=== PATIENT | female | born 1945 | race Caucasian/White ===

== ENCOUNTER 2016-11-23 15:06 | Emergency (ER) | payer MEDICAID ==
[2016-11-23 15:21] VITALS: PULSE 63; RESP 18; TEMP 98; O2SAT 98
[2016-11-23 15:22] VITALS: BP 138/82
--- NOTE | 2016-11-23 16:25 | C.PDOC ---
History Of Present Illness 71 y/o female presents to the ED with complaints pain to right wrist, flank and knee. Pt reports she tripped and fell 2 days ago landing on her right side on carpet floor. Denies head injury, LOC, weakness, numbness or any other complaints. - HPI Time Seen by Provider: 11/23/16 15:46 Chief Complaint (Nursing): Trauma History Per: Patient History/Exam Limitations: no limitations Onset/Duration Of Symptoms: Days Severity: Mild - Fall Fall:Prior To Injury: Tripped Past Medical History Reviewed: Historical Data, Nursing Documentation, Vital Signs Vital Signs: Last Vital Signs Temp 98.0 F 11/23/16 15:14 Pulse 63 11/23/16 15:14 Resp 18 11/23/16 15:14 BP 138/82 11/23/16 15:14 Pulse Ox 98 11/23/16 16:57 - Medical History PMH: Arthritis, CVA (affecting left side of body), HTN, Osteoporosis, Rheumatoid Arthritis Surgical History: Cholecystectomy - [facility] Procedures INJECT/INFUSE NEC (05/03/14) Family History: States: Unknown Family Hx - Social History Hx Tobacco Use: No Hx Alcohol Use: No Hx Substance Use: No - Immunization History Hx Tetanus Toxoid Vaccination: No Hx Influenza Vaccination: No Hx Pneumococcal Vaccination: No Review Of Systems Except As Marked, All Systems Reviewed And Found Negative. Musculoskeletal: Positive for: Other (right wrist, flank and knee pain) Neurological: Negative for: Weakness, Numbness Physical Exam - Physical Exam Appears: Non-toxic, No Acute Distress Skin: Warm, Dry, Other (hematoma to pinna right ear) Head: Atraumatic, Normacephalic Eye(s): bilateral: Normal Inspection Nose: Normal, No Epistaxis Neck: Normal, Normal ROM, Supple Chest: Symmetrical, Tenderness (right lateral rib tenderness and ecchymosis), Ecchymosis (right lateral posterior side) Cardiovascular: Rhythm Regular, No Murmur Respiratory: Normal Breath Sounds, No Rales, No Rhonchi, No Wheezing Gastrointestinal/Abdominal: Normal Exam, Soft, No Tenderness Back: Normal Inspection, No Vertebral Tenderness, No Paraspinal Tenderness Extremity: Normal ROM, Capillary Refill (<2 seconds), No Deformity, Swelling ( mild swelling right wrist with nonfocal tenderness), Other (mild ecchymotic lesion to right knee) Pulses: Right Radial: Normal, Right Dorsalis Pedis: Normal Neurological/Psych: Oriented x3, Normal Speech, Normal Motor, Normal Sensation ED Course And Treatment O2 Sat by Pulse Oximetry: 98 (room air) Pulse Ox Interpretation: Normal Medical Decision Making Medical Decision Making: Plan: * XR ribs, chest * Tylenol X-rays negative for fracture or dislocation. Patient remained well in no acute distress. Stable for discharge and recommend analgesics as needed Disposition Counseled Patient/Family Regarding: Studies Performed, Diagnosis, Need For Followup - Disposition Referrals: [facility] [Outside] [facility] [employer] [facility] [Outside] Disposition: HOME/ ROUTINE Disposition Time: 16:35 Condition: STABLE Additional Instructions: Las radiografas fueron normales, sin fractura. [place] Motrin u otro medicamento anti-inflamatorio, con alimentos para no molestar el estmago. Seguir con ortopedia si el dolor persiste radha reginald semana. Por favor, siga en la clnica o pediatra Instructions: Contusion in Adults (DC) Print Language: [place] ISLANDER - POA Present On Arrival: Falls Or Trauma - Clinical Impression Clinical Impression: Right wrist sprain, Contusion of rib on right side, Ear hematoma, right - PA / ELEVATOR RUNNER / Resident Statement MD/DO has reviewed & agrees with the documentation as recorded. - Scribe Statement The provider has reviewed the documentation as recorded by the Scribjuwan street All medical record entries made by the Scribe were at my direction and personally dictated by me. I have reviewed the chart and agree that the record accurately reflects my personal performance of the history, physical exam, medical decision making, and the department course for this patient. I have also personally directed, reviewed, and agree with the discharge instructions and disposition.
--- NOTE | 2016-11-23 16:36 | RAD ---
PROCEDURE: Radiographs of the Chest and Right Ribs. HISTORY: pain s.p fall COMPARISON: 06/01/2015 TECHNIQUE: Frontal radiograph of the chest and multiple oblique radiographs of the right ribs were obtained. FINDINGS: RIGHT RIBS: No fracture or focal lesion visualized. LUNGS: Clear. PLEURA: No pneumothorax or pleural fluid. CARDIOVASCULAR: Cardiomegaly. No evidence of acute, significant cardiovascular disease. OTHER FINDINGS: None. IMPRESSION: Unremarkable radiographs of the chest and right ribs. No right rib fracture. No significant interval change compared to the prior examination(s). Concordant results with the preliminary interpretation rendered by the emergency department physician procedure.
--- NOTE | 2016-11-23 16:42 | RAD ---
PROCEDURE: Right Wrist Radiographs. HISTORY: pain s.p fall COMPARISON: None. FINDINGS: BONES: Normal. No fracture. JOINTS: Normal. No dislocation. SOFT TISSUES: Normal. OTHER FINDINGS: None. IMPRESSION: No acute findings related to/accounting for the clinical presentation. Concordant results with the preliminary interpretation rendered by the emergency department physician procedure.
== END 2016-11-23 16:36 | disposition home or self-care (01) ==
LOC: C.ER 15:06
DX: S63.501A Unspecified sprain of right wrist, initial encounter (principal); S20.211A Contusion of right front wall of thorax, initial encounter; S00.431A Contusion of right ear, initial encounter; W01.0XXA Fall on same level from slipping, tripping and stumbling without subsequent striking against object, initial encounter

== ENCOUNTER 2016-12-23 12:21 | Emergency (ER) | payer MEDICAID ==
[2016-12-23 12:49] VITALS: BMI 27.3
[2016-12-23 12:53] VITALS: PULSE 88
[2016-12-23] MEDS ORDERED: Sodium Chloride 0.9% Inh Soln (3mL) UD INH ONE (13:16)
--- NOTE | 2016-12-23 13:19 | C.PDOC ---
History Of Present Illness 71 year old female who presents to the ER with a complaint of sore throat, productive cough, nasal congestion, and generalized body aches since Saturday. Patient reports having an episode of fever and states she has not been able to eat or drink properly due to the pain. Denies chest pain, SOB, recent travel/ sick contact. Time Seen by Provider: 12/23/16 13:00 Chief Complaint (Nursing): ENT Problem History Per: Patient History/Exam Limitations: no limitations Onset/Duration Of Symptoms: Days Current Symptoms Are (Timing): Still Present Location Of Pain: Throat, Diffuse Myalgias Sick Contacts (Context): None Associated Symptoms: Sore Throat, Cough, Sputum, Myalgias, Nasal Congestion Ear Symptoms: Bilateral: None Recent travel outside of the [place]: No Past Medical History Reviewed: Historical Data, Nursing Documentation, Vital Signs Vital Signs: Last Vital Signs Temp 98.9 F 12/23/16 12:49 Pulse 88 12/23/16 12:49 Resp 18 12/23/16 12:49 BP 141/89 12/23/16 12:49 Pulse Ox 98 12/23/16 13:26 - Medical History PMH: Arthritis, CVA (affecting left side of body), HTN, Osteoporosis, Rheumatoid Arthritis Surgical History: Cholecystectomy - [facility] Procedures INJECT/INFUSE NEC (05/03/14) Family History: States: Unknown Family Hx - Social History Hx Tobacco Use: No Hx Alcohol Use: No Hx Substance Use: No - Immunization History Hx Tetanus Toxoid Vaccination: No Hx Influenza Vaccination: No Hx Pneumococcal Vaccination: No Review Of Systems Constitutional: Positive for: Malaise. Negative for: Fever, Chills ENT: Positive for: Throat Pain. Negative for: Ear Pain, Ear Discharge, Throat Swelling Cardiovascular: Negative for: Chest Pain, Palpitations Respiratory: Positive for: Cough, Sputum. Negative for: Shortness of Breath Physical Exam - Physical Exam Appears: Non-toxic Skin: Normal Color, Warm, Dry Head: Atraumatic, Normacephalic Ear(s): Bilateral: Normal Nose: Normal, No Discharge Oral Mucosa: Moist Throat: Erythema, No Other (Tonsillar swelling) Neck: Normal, Supple Chest: Symmetrical, No Tenderness Cardiovascular: Rhythm Regular, No Murmur Respiratory: Normal Breath Sounds, No Rales, No Rhonchi, No Wheezing Gastrointestinal/Abdominal: Soft, No Tenderness Neurological/Psych: Oriented x3, Normal Speech, Normal Cognition ED Course And Treatment O2 Sat by Pulse Oximetry: 98 (Room air) Pulse Ox Interpretation: Normal Medical Decision Making Medical Decision Making: Plan: * Tylenol * Saline nebulizer treatment Patient given Rx, instructed to continue to use tylenol for pain and follow up with PMD in 1-2 days. 157 PM Pt feeling better after tylenol and saline neb. will give first dose of zithrmoax, d/c with 4 more days meds and tylenol, pmd f/u on sat. Disposition Counseled Patient/Family Regarding: Diagnosis, Need For Followup, Rx Given - Disposition Disposition: HOME/ ROUTINE Disposition Time: 13:59 Condition: IMPROVED Additional Instructions: [place] el Tylenol segn lo prescrito para el dolor. Jocelin grgaras varias veces al da con agua salada tibia. [place] el antibitico reginald vez al da radha los pr ximos 4 salazar. Usted recibi la primera dosis en la sumeet de emergencias hoy. Siga con elias mdico el mircoles segn lo planeado. REturn a ER para cualquier s ntoma de dolor. Prescriptions: Acetaminophen [Tylenol 325mg tab] 650 mg PO Q6 PRN #50 tab PRN Reason: Pain, Moderate (4-7) Azithromycin [Zithromax] 250 mg PO DAILY #4 tab Forms: raksul (Lao) - Clinical Impression Clinical Impression: Upper respiratory infection - Scribe Statement The provider has reviewed the documentation as recorded by the Scribjuwan Doshi All medical record entries made by the Scribe were at my direction and personally dictated by me. I have reviewed the chart and agree that the record accurately reflects my personal performance of the history, physical exam, medical decision making, and the department course for this patient. I have also personally directed, reviewed, and agree with the discharge instructions and disposition.
[2016-12-23 14:14] VITALS: BP 139/88; RESP 16; TEMP 98.2
[2016-12-27 11:29] VITALS: O2SAT 98
== END 2016-12-23 14:13 | disposition home or self-care (01) ==
LOC: C.ER 12:21
DX: J06.9 Acute upper respiratory infection, unspecified (principal)

== ENCOUNTER 2017-02-08 12:02 | Emergency (ER) | payer MEDICAID ==
[2017-02-08 12:03] VITALS: BMI 27.3
[2017-02-08 12:11] VITALS: TEMP 97.6
--- NOTE | 2017-02-08 12:53 | C.PDOC ---
History Of Present Illness 71 yr old female presents to the ER for bilateral pedal edema for the past 4 days. Patient reports its painful and feels like the skin is stretched. 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 Patient states she elevated her feet last night and now reports improvement of symptoms. States she has tried compression stocking but were painful to use and then started taking Aspirin which has helped. Patient describes the pain as itchiness and pins and needles. Patient denies fever, chest pain, SOB, nausea, vomiting, headache, weakness or numbness. Time Seen by Provider: 02/08/17 12:32 Chief Complaint (Nursing): Lower Extremity Problem/Injury History Per: Patient History/Exam Limitations: no limitations Onset/Duration Of Symptoms: Days (4) Past Medical History Reviewed: Historical Data, Nursing Documentation, Vital Signs Vital Signs: Last Vital Signs Temp 97.6 F 02/08/17 12:07 Pulse 78 02/08/17 13:06 Resp 16 02/08/17 13:06 BP 145/84 02/08/17 13:06 Pulse Ox 98 02/08/17 13:06 - Medical History PMH: Arthritis, CVA (affecting left side of body), HTN, Osteoporosis, Rheumatoid Arthritis Surgical History: Cholecystectomy - [facility] Procedures INJECT/INFUSE NEC (05/03/14) Family History: States: No Known Family Hx - Social History Hx Tobacco Use: No Hx Alcohol Use: No Hx Substance Use: No - Immunization History Hx Tetanus Toxoid Vaccination: No Hx Influenza Vaccination: No Hx Pneumococcal Vaccination: No Review Of Systems Except As Marked, All Systems Reviewed And Found Negative. Constitutional: Negative for: Fever Cardiovascular: Negative for: Chest Pain Respiratory: Negative for: Shortness of Breath Gastrointestinal: Negative for: Nausea, Vomiting Musculoskeletal: Positive for: Other ((+) Bilateral pedal edema) Neurological: Negative for: Weakness, Numbness, Headache Physical Exam - Physical Exam Appears: Non-toxic, No Acute Distress Skin: Warm, Dry, No Rash Head: Atraumatic, Normacephalic Oral Mucosa: Moist Chest: Symmetrical, No Tenderness Cardiovascular: Rhythm Regular, No Murmur Respiratory: Normal Breath Sounds, No Rales, No Rhonchi, No Stridor, No Wheezing Extremity: Normal ROM, No Tenderness, Other ((+) Bilateral, from mid lower extremity to foot, pitting edema. No trauma) Neurological/Psych: Oriented x3, Normal Speech, Normal Motor ED Course And Treatment O2 Sat by Pulse Oximetry: 99 (RA) Pulse Ox Interpretation: Normal Progress Note: Patient is reffered to Dr. Leonardo for further evaluation. Disposition Counseled Patient/Family Regarding: Diagnosis, Need For Followup, Rx Given - Disposition Referrals: Jimbo Martinez Jr., MD [Staff Provider] - Disposition: HOME/ ROUTINE Disposition Time: 12:51 Condition: STABLE Prescriptions: Furosemide [Lasix] 20 mg PO DAILY #20 tablet Instructions: Peripheral Vascular Disease (ED) Forms: NX [employer] (Uruguayan), Work Excuse - POA Present On Arrival: None - Clinical Impression Clinical Impression: PVD (peripheral vascular disease) - Scribe Statement The provider has reviewed the documentation as recorded by the Gangaibe Destiny Barrett Provider Attestation: All medical record entries made by the Scribe were at my direction and personally dictated by me. I have reviewed the chart and agree that the record accurately reflects my personal performance of the history, physical exam, medical decision making, and the department course for this patient. I have also personally directed, reviewed, and agree with the discharge instructions and disposition.
[2017-02-08 13:06] VITALS: BP 145/84; PULSE 78; RESP 16
[2017-02-08 13:37] VITALS: O2SAT 99
== END 2017-02-08 13:06 | disposition home or self-care (01) ==
LOC: C.ER 12:02
DX: I73.9 Peripheral vascular disease, unspecified (principal); I10 Essential (primary) hypertension; M06.9 Rheumatoid arthritis, unspecified

== ENCOUNTER 2017-02-27 19:19 | Emergency (ER) | payer MEDICAID ==
[2017-02-27 19:20] VITALS: BMI 27.3
[2017-02-27 19:42] VITALS: O2SAT 97
[2017-02-27] MEDS ORDERED: Sodium Chloride 0.9% 1,000 ML IV ONE (19:48)
--- NOTE | 2017-02-27 19:51 | C.PDOC ---
Chief Complaint (Nursing): Abdominal Pain Past Medical History Vital Signs: Last Vital Signs Temp 98 F 02/27/17 19:37 Pulse 92 H 02/27/17 19:37 Resp 18 02/27/17 19:37 BP 141/97 H 02/27/17 19:37 Pulse Ox 97 02/27/17 19:37 - Medical History PMH: Arthritis, CVA (affecting left side of body), Gastritis, HTN, Osteoporosis , Rheumatoid Arthritis Surgical History: Cholecystectomy - [facility] Procedures INJECT/INFUSE NEC (05/03/14) Family History: States: Unknown Family Hx - Social History Hx Tobacco Use: No Hx Alcohol Use: No Hx Substance Use: No - Immunization History Hx Tetanus Toxoid Vaccination: No Hx Influenza Vaccination: No Hx Pneumococcal Vaccination: Yes ED Course And Treatment ECG: Interpreted By Me, Viewed By Me ECG Rhythm: Sinus Rhythm ECG Interpretation: No Acute Changes, Abnormal Interpretation Of ECG: NSR, QS pattern in III and AVF, no acute changes, abnormal tracings O2 Sat by Pulse Oximetry: 97 Disposition - Disposition
--- NOTE | 2017-02-27 19:52 | C.PDOC ---
History Of Present Illness 71 y/o female c/o epigastric abdominal pain associated with vomiting and left sided headache associated with nasal congestion for the last few days, more so last night. Denies fever, chills, or SOB. Time Seen by Provider: 02/27/17 19:50 Chief Complaint (Nursing): Abdominal Pain History Per: Patient History/Exam Limitations: no limitations Onset/Duration Of Symptoms: Days Current Symptoms Are (Timing): Still Present Severity: Mild Location Of Pain/Discomfort: Epigastric Radiation Of Pain To:: None Quality Of Discomfort: "Pain" Associated Symptoms: Vomiting. denies: Fever, Chills Recent travel outside of the [place]: No Additional History Per: Patient Past Medical History Reviewed: Historical Data, Nursing Documentation, Vital Signs Vital Signs: Last Vital Signs Temp 98 F 02/27/17 19:37 Pulse 92 H 02/27/17 19:37 Resp 18 02/27/17 19:37 BP 141/97 H 02/27/17 19:37 Pulse Ox 97 02/27/17 22:53 - Medical History PMH: Arthritis, CVA (affecting left side of body), Gastritis, HTN, Osteoporosis , Rheumatoid Arthritis Surgical History: [facility] Procedures INJECT/INFUSE NEC (05/03/14) Family History: States: Unknown Family Hx - Social History Hx Tobacco Use: No Hx Alcohol Use: No Hx Substance Use: No - Immunization History Hx Tetanus Toxoid Vaccination: No Hx Influenza Vaccination: No Hx Pneumococcal Vaccination: Yes Review Of Systems Except As Marked, All Systems Reviewed And Found Negative. Constitutional: Negative for: Fever, Chills ENT: Positive for: Nose Congestion Respiratory: Negative for: Cough, Shortness of Breath Gastrointestinal: Positive for: Vomiting, Abdominal Pain (epigastric) Neurological: Positive for: Headache (Left sided) Physical Exam - Physical Exam Appears: Non-toxic, No Acute Distress Skin: Warm, Dry Head: Atraumatic, Normacephalic, Tenderness (Tenderness to the right frontal and maxillary sinus area (para sinus area)) Eye(s): bilateral: Normal Inspection, PERRL, EOMI Neck: Supple Cardiovascular: Rhythm Regular, No Murmur Respiratory: Normal Breath Sounds, No Rales, No Rhonchi, No Wheezing Gastrointestinal/Abdominal: Soft, Tenderness (Epigastric area), No Guarding, No Rebound ED Course And Treatment - Laboratory Results Result Diagrams: 02/27/17 20:01 02/27/17 20:01 ECG: Interpreted By Me, Viewed By Me ECG Rhythm: Sinus Rhythm ECG Interpretation: No Acute Changes, Abnormal Interpretation Of ECG: NSR, QS pattern in III and AVF, no acute changes, abnormal tracings Rate From EC O2 Sat by Pulse Oximetry: 97 (RA) Pulse Ox Interpretation: Normal Medical Decision Making Medical Decision Making: Plans: * Blood labs * Head CT w/o * pepcid * Zofran * IV fluids * Carafate * UA Disposition Counseled Patient/Family Regarding: Diagnosis - Disposition Referrals: [facility] [Outside] Disposition: HOME/ ROUTINE Disposition Time: 22:51 Condition: STABLE Prescriptions: Famotidine [Pepcid] 20 mg PO BID #30 tab Sucralfate [Carafate] 1 gm PO BID #20 tablet Forms: [employer] (Sami), Gen Discharge Inst Citizen Of [place] Print Language: IVORIAN - Clinical Impression Clinical Impression: Gastritis and gastroduodenitis, Abdominal pain - Scribe Statement The provider has reviewed the documentation as recorded by the Scribjuwan headley All medical record entries made by the Scribe were at my direction and personally dictated by me. I have reviewed the chart and agree that the record accurately reflects my personal performance of the history, physical exam, medical decision making, and the department course for this patient. I have also personally directed, reviewed, and agree with the discharge instructions and disposition.
[2017-02-27 20:05] LABS: BASO # 0.1 K/uL (0.0-0.2); BASO % 0.8 % (0.0-2.0); EOS # 0.1 K/uL (0.0-0.7); EOS % 0.7 % (0.0-4.0); HEMATOCRIT 44.2 % (34.0-47.0); LYMPH # 1.6 K/uL (1.0-4.3); LYMPH % 22.5 % (20.0-40.0); MEAN CELL VOLUME 89.5 fL (81.0-99.0); MEAN CORPUSCULAR HEMOGLOBIN 30.5 pg (27.0-31.0); MEAN CORPUSCULAR HGB CONC 34.1 g/dL (33.0-37.0); MONO # 0.5 K/uL (0.0-0.8); MONO % 6.7 % (0.0-10.0); RED CELL DISTRIBUTION WIDTH 13.5 % (11.5-14.5); WHITE BLOOD COUNT 6.9 K/uL (4.8-10.8)
[2017-02-27 20:15] LABS: CHLORIDE 100 mmol/L (98-107); POTASSIUM 3.4 mmol/L (3.6-5.2); SODIUM 136 mmol/L (132-148)
[2017-02-27 20:17] LABS: BILIRUBIN,TOTAL 0.8 mg/dL (0.2-1.3); CARBON DIOXIDE 25 mmol/L (22-30); GFR AFRICAN-AMERICAN > 60
[2017-02-27 20:18] LABS: ALB/GLOB RATIO 1.2 (1.0-2.1); ALKALINE PHOSPHATASE 83 U/L (38-126); ALT/SGPT 31 U/L (9-52); AST/SGOT 29 U/L (14-36); BLOOD UREA NITROGEN 10 mg/dL (7-17); CALCIUM 8.9 mg/dl (8.6-10.4); GLUCOSE,RANDOM 143 mg/dL (65-105); TOTAL PROTEIN 7.6 g/dL (6.3-8.3)
--- NOTE | 2017-02-27 21:57 | CT ---
EXAM: CT Head Without Intravenous Contrast CLINICAL HISTORY: 71 years old, female; Condition or disease; Headache; Additional info: Right sided headache / nasal congestion/ sinusitis TECHNIQUE: Axial computed tomography images of the head/brain without intravenous contrast. All CT scans at this facility use one or more dose reduction techniques, viz.: automated exposure control; ma/kV adjustment per patient size (including targeted exams where dose is matched to indication; i.e. head); or iterative reconstruction technique. COMPARISON: CT - HEAD W/O CONTRAST 2015-06-01 16:10 FINDINGS: Brain: No acute intracranial hemorrhage. Age-appropriate periventricular white matter disease. No edema. Ventricles: Age-appropriate ventriculomegaly. 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 Bones: No acute displaced fracture. Sinuses: Unremarkable as visualized. No acute sinusitis. Mastoid air cells: Unremarkable as visualized. No mastoid effusion. IMPRESSION: No acute intracranial hemorrhage, or suspicious mass effect.
[2017-02-27 23:18] VITALS: BP 135/82; PULSE 72; RESP 16; TEMP 98.1
--- NOTE | 2017-03-01 12:19 | CARD ---
APPROVED REPORT EKG Measurement Heart [id number] <Conclusion> Normal sinus rhythm Inferior infarct, age undetermined Abnormal ECG
== END 2017-02-27 23:18 | disposition home or self-care (01) ==
LOC: C.ER 19:19
DX: K29.70 Gastritis, unspecified, without bleeding (principal); K29.90 Gastroduodenitis, unspecified, without bleeding; R10.13 Epigastric pain
CPT/HCPCS: 70450; 80053; 83690; 85025; 96374; 96375; 99284; J2405; J7040

== ENCOUNTER 2017-03-29 17:49 | Emergency (ER) | payer MEDICAID ==
[2017-03-29 17:50] VITALS: BMI 27.3
--- NOTE | 2017-03-29 19:32 | C.PDOC ---
History Of Present Illness 71 y/o female presents to ED with complaints of dry mouth, dry eyes, occasional shortness of breath, cough, chest heaviness, and upper back pain that developed few hours ago today. Pt states that she was cleaning with unknown chemicals at work and developed these symptoms 3 hours after. Pt states that her coworkers also became sick. Otherwise, denies any nausea, vomiting, abdominal pain, or any other complaints at this time. Time Seen by Provider: 03/29/17 18:22 Chief Complaint (Nursing): Cough, Cold, Congestion History Per: Patient History/Exam Limitations: no limitations Onset/Duration Of Symptoms: Hrs Current Symptoms Are (Timing): Still Present Recent travel outside of the [place]: No Additional History Per: Patient Past Medical History Reviewed: Historical Data, Nursing Documentation, Vital Signs Vital Signs: Last Vital Signs Temp 97.9 F 03/29/17 18:06 Pulse 71 03/29/17 18:06 Resp 18 03/29/17 18:06 BP 136/89 03/29/17 18:06 Pulse Ox 97 03/29/17 20:11 - Medical History PMH: Arthritis, CVA (affecting left side of body), Gastritis, HTN, Osteoporosis , Rheumatoid Arthritis Surgical History: Cholecystectomy - [facility] Procedures INJECT/INFUSE NEC (05/03/14) Family History: States: Unknown Family Hx - Social History Hx Tobacco Use: No Hx Alcohol Use: No Hx Substance Use: No - Immunization History Hx Tetanus Toxoid Vaccination: No Hx Influenza Vaccination: No Hx Pneumococcal Vaccination: Yes Review Of Systems Except As Marked, All Systems Reviewed And Found Negative. Constitutional: Negative for: Fever, Chills Eyes: Positive for: Other (dry eyes) ENT: Positive for: Other (dry mouth ) Cardiovascular: Positive for: Chest Pain (heaviness) Respiratory: Positive for: Cough, Shortness of Breath. Negative for: Hemoptysis Gastrointestinal: Negative for: Nausea, Vomiting, Abdominal Pain Musculoskeletal: Positive for: Back Pain (upper). Negative for: Neck Pain Skin: Negative for: Rash Neurological: Negative for: Headache, Dizziness Physical Exam - Physical Exam Appears: Non-toxic, No Acute Distress Skin: Normal Color, Warm, Dry Head: Atraumatic, Normacephalic Eye(s): bilateral: Normal Inspection Nose: Normal Oral Mucosa: Moist Tongue: Normal Appearing Lips: Normal Appearing Throat: Normal, No Erythema, No Drooling Neck: Supple Chest: Symmetrical Cardiovascular: Rhythm Regular, No Murmur Respiratory: Normal Breath Sounds, No Rales, No Rhonchi, No Wheezing Gastrointestinal/Abdominal: Soft, No Tenderness Extremity: Normal ROM, No Pedal Edema Pulses: Left Radial: Normal, Right Radial: Normal Neurological/Psych: Oriented x3, Normal Speech ED Course And Treatment ECG: Interpreted By Me, Viewed By Me ECG Rhythm: Sinus Rhythm ECG Interpretation: No Acute Changes Interpretation Of ECG: No acute ischemia. Rate From EC (bpm) O2 Sat by Pulse Oximetry: 97 (RA) Pulse Ox Interpretation: Normal Disposition - Disposition Disposition: HOME/ ROUTINE Disposition Time: 20:12 Condition: STABLE Forms: [facility] (Palauan) - Clinical Impression Clinical Impression: Chemical exposure - Scribe Statement The provider has reviewed the documentation as recorded by the Scribe Danielle Oates All medical record entries made by the Scribe were at my direction and personally dictated by me. I have reviewed the chart and agree that the record accurately reflects my personal performance of the history, physical exam, medical decision making, and the department course for this patient. I have also personally directed, reviewed, and agree with the discharge instructions and disposition.
[2017-03-29 20:48] VITALS: BP 128/81; PULSE 68; RESP 16; TEMP 97.8; O2SAT 99
--- NOTE | 2017-03-30 07:43 | RAD ---
HISTORY: inhaled chemical COMPARISON: 11/23/2016 TECHNIQUE: Chest PA and lateral FINDINGS: LUNGS: Bibasilar atelectasis. Chronic interstitial lung markings. PLEURA: No significant pleural effusion identified. No pneumothorax apparent. CARDIOVASCULAR: Mild cardiomegaly. OSSEOUS STRUCTURES: Degenerative changes in the spine and shoulders. VISUALIZED UPPER ABDOMEN: Normal. OTHER FINDINGS: None. IMPRESSION: Bibasilar atelectasis. Chronic interstitial lung markings.
== END 2017-03-29 20:48 | disposition home or self-care (01) ==
LOC: C.ER 17:49
DX: Z77.098 Contact with and (suspected) exposure to other hazardous, chiefly nonmedicinal, chemicals (principal); I10 Essential (primary) hypertension; M06.9 Rheumatoid arthritis, unspecified; M81.0 Age-related osteoporosis without current pathological fracture

== ENCOUNTER 2017-05-04 11:25 | Emergency (ER) | payer MEDICAID ==
[2017-05-04 11:25] VITALS: BMI 27.3
[2017-05-04 11:40] VITALS: BP 123/84; PULSE 79; TEMP 98.2
--- NOTE | 2017-05-04 12:53 | C.PDOC ---
History Of Present Illness Whitney Alcala is a 71 Time Seen by Provider: 05/04/17 11:44 Chief Complaint (Nursing): Upper Extremity Problem/Injury Past Medical History Vital Signs: Last Vital Signs Temp 98.2 F 05/04/17 11:37 Pulse 79 05/04/17 11:37 Resp 16 05/04/17 11:37 BP 123/84 05/04/17 11:37 Pulse Ox 96 05/04/17 11:37 - Medical History PMH: Arthritis, CVA (affecting left side of body), Gastritis, HTN, Osteoporosis , Rheumatoid Arthritis Surgical History: Cholecystectomy - [facility] Procedures INJECT/INFUSE NEC (05/03/14) Family History: States: Unknown Family Hx - Social History Hx Tobacco Use: No Hx Alcohol Use: No Hx Substance Use: No - Immunization History Hx Tetanus Toxoid Vaccination: No Hx Influenza Vaccination: No Hx Pneumococcal Vaccination: Yes ED Course And Treatment O2 Sat by Pulse Oximetry: 96 Disposition - Disposition
--- NOTE | 2017-05-04 12:58 | C.PDOC ---
History Of Present Illness Whitney Alcala is a 71 year old female, with a past medical history hypertension , arthritis and CVA, who presents to the emergency department after she tripped and fell outside her house yesterday. Patient states she tripped and fell forward, hitting the back of right wrist and hand, her left knee and ankle. She denies a head injury, and is able to ambulate. No further medical complaints. PMD: Jimbo Sierra Time Seen by Provider: 05/04/17 11:44 Chief Complaint (Nursing): Upper Extremity Problem/Injury History Per: Patient History/Exam Limitations: no limitations Onset/Duration Of Symptoms: Days (x1) Current Symptoms Are (Timing): Still Present Quality: "Pain" Pain Scale Rating Of: 10 Past Medical History Reviewed: Historical Data, Nursing Documentation, Vital Signs Vital Signs: Last Vital Signs Temp 98.2 F 05/04/17 13:24 Pulse 79 05/04/17 13:24 Resp 18 05/04/17 13:24 BP 123/84 05/04/17 13:24 Pulse Ox 96 05/04/17 13:54 - Medical History PMH: Arthritis, CVA (affecting left side of body), Gastritis, HTN, Osteoporosis , Rheumatoid Arthritis Surgical History: Cholecystectomy - [facility] Procedures INJECT/INFUSE NEC (05/03/14) Family History: States: Unknown Family Hx - Social History Hx Tobacco Use: No Hx Alcohol Use: No Hx Substance Use: No - Immunization History Hx Tetanus Toxoid Vaccination: No Hx Influenza Vaccination: No Hx Pneumococcal Vaccination: Yes Review Of Systems Except As Marked, All Systems Reviewed And Found Negative. Musculoskeletal: Positive for: Hand Pain (right wrist and hand), Leg Pain (left knee), Foot Pain (left ankle) Physical Exam - Physical Exam Skin: Normal Color, Warm, Dry Head: Atraumatic, Normacephalic Eye(s): bilateral: Normal Inspection, PERRL, EOMI Neck: Normal, Normal ROM, Supple Cardiovascular: Rhythm Regular Respiratory: Normal Breath Sounds, No Accessory Muscle Use Gastrointestinal/Abdominal: Normal Exam, Soft, No Tenderness Back: Normal Inspection, No CVA Tenderness Extremity: Normal ROM (left knee and ankle; right wrist and hand), Tenderness ( left knee mild tender to palpation. Left lateral malleolus mildly tender, minimal swelling no ecchymosis), No Deformity (right wrist and hand), Swelling ( dorsum of right wrist and hand. Elbow and shoulder fine) Pulses: Right Radial: Normal, Left Dorsalis Pedis: Normal Neurological/Psych: Oriented x3, Normal Speech, Normal Motor, Normal Sensation ED Course And Treatment O2 Sat by Pulse Oximetry: 96 (RA) Pulse Ox Interpretation: Normal Medical Decision Making Medical Decision Making: Initial Impression: left knee and ankle; right hand and wrist injury s/p fall Initial Plan: --Knee 3 views LT [RAD] --Ankle left 3 views routine [RAD] --Hand right 3 views routine [RAD] --Wrist, right 3 views routine [RAD] --reevaluation 13:46 Ankle Xray FINDINGS: BONES: There is no acute displaced fracture or bone destruction. Bone alignment is normal. There is bone demineralization. There is a prominent plantar calcaneal spur. JOINTS: Normal. No osteoarthritis. Ankle mortise maintained. Talar dome intact SOFT TISSUES: There is severe periarticular soft tissue swelling. OTHER FINDINGS: None. IMPRESSION: No acute displaced fracture or dislocation. 13:47 Knee X-Ray FINDINGS: BONES: Bone alignment is normal. No acute displaced fracture. JOINTS: There is mild tricompartmental degenerative osteoarthrosis with reduced joint spaces and marginal spurring with tibial spiking, worse in the medial compartment. JOINT EFFUSION: None. OTHER FINDINGS: None. IMPRESSION: No acute fracture or dislocation. Mild tricompartmental degenerative osteoarthrosis, worse in the medial compartment. 13:48 Hand X-Ray FINDINGS: BONES: There is an acute transverse nondisplaced fracture in the distal aspect of the proximal phalanx of the little finger with mild surrounding soft tissue swelling. There is diffuse bone demineralization. Bone alignment is normal. JOINTS: Normal. SOFT TISSUES: No radiopaque foreign body. OTHER FINDINGS: None. IMPRESSION: Acute transverse nondisplaced fracture in the distal aspect of the proximal phalanx of the little finger with mild surrounding soft tissue swelling. 13:50 Wrist X-Ray FINDINGS: BONES: There is no acute displaced fracture or bone destruction. Bone alignment is normal. There is bone demineralization. JOINTS: The proximal and distal carpal rows are maintained. SOFT TISSUES: Normal. OTHER FINDINGS: None. IMPRESSION: No acute fracture or dislocation. 14:35 -Radiologist read X-Ray as possible fracture. Attempted to call patient to notify but patient's phone disconnected and doesn't allow to leave message. Will attempt to call again Disposition - Disposition Referrals: Jimbo Sierra MD [Medical Doctor] - Disposition: HOME/ ROUTINE Disposition Time: 12:54 Condition: STABLE Additional Instructions: Follow up with your PMD within 1-2 days. Return to ED if feel worse. Prescriptions: traMADol [Ultram] 50 mg PO Q6 #20 tab Instructions: Ankle Sprain (ED), Wrist Injury (ED), Ankle Stirrup Splint (ED), Knee Pain (ED) Forms: [employer] (Guinean) Print Language: LAO - Clinical Impression Clinical Impression: Knee contusion, Ankle sprain, Contusion of multiple sites of hand and wrist
[2017-05-04 13:25] VITALS: RESP 18
--- NOTE | 2017-05-04 13:48 | RAD ---
PROCEDURE: Left Ankle Radiographs. HISTORY: Fall COMPARISON: None FINDINGS: BONES: There is no acute displaced fracture or bone destruction. Bone alignment is normal. There is bone demineralization. There is a prominent plantar calcaneal spur. JOINTS: Normal. No osteoarthritis. Ankle mortise maintained. Talar dome intact SOFT TISSUES: There is severe periarticular soft tissue swelling. OTHER FINDINGS: None. IMPRESSION: No acute displaced fracture or dislocation.
--- NOTE | 2017-05-04 13:49 | RAD ---
PROCEDURE: Left Knee Radiographs. HISTORY: Pain. COMPARISON: None. FINDINGS: BONES: Bone alignment is normal. No acute displaced fracture. JOINTS: There is mild tricompartmental degenerative osteoarthrosis with reduced joint spaces and marginal spurring with tibial spiking, worse in the medial compartment. JOINT EFFUSION: None. OTHER FINDINGS: None. IMPRESSION: No acute fracture or dislocation. Mild tricompartmental degenerative osteoarthrosis, worse in the medial compartment.
--- NOTE | 2017-05-04 13:50 | RAD ---
PROCEDURE: Right Hand Radiographs. HISTORY: fall COMPARISON: None. FINDINGS: BONES: There is an acute transverse nondisplaced fracture in the distal aspect of the proximal phalanx of the little finger with mild surrounding soft tissue swelling. There is diffuse bone demineralization. Bone alignment is normal. JOINTS: Normal. SOFT TISSUES: No radiopaque foreign body. OTHER FINDINGS: None. IMPRESSION: Acute transverse nondisplaced fracture in the distal aspect of the proximal phalanx of the little finger with mild surrounding soft tissue swelling.
--- NOTE | 2017-05-04 13:52 | RAD ---
PROCEDURE: Right Wrist Radiographs. HISTORY: Fall COMPARISON: None. FINDINGS: BONES: There is no acute displaced fracture or bone destruction. Bone alignment is normal. There is bone demineralization. JOINTS: The proximal and distal carpal rows are maintained. SOFT TISSUES: Normal. OTHER FINDINGS: None. IMPRESSION: No acute fracture or dislocation.
[2017-05-04 13:54] VITALS: O2SAT 96
== END 2017-05-04 13:24 | disposition home or self-care (01) ==
LOC: C.ER 11:25
DX: S62.646A Nondisplaced fracture of proximal phalanx of right little finger, initial encounter for closed fracture (principal); S60.211A Contusion of right wrist, initial encounter; S80.02XA Contusion of left knee, initial encounter; S93.402A Sprain of unspecified ligament of left ankle, initial encounter; W01.0XXA Fall on same level from slipping, tripping and stumbling without subsequent striking against object, initial encounter; Y92.007 Garden or yard of unspecified non-institutional (private) residence as the place of occurrence of the external cause

== ENCOUNTER 2018-05-03 13:39 | Emergency (ER) | payer MEDICARE, MEDICAID ==
[2018-05-03 13:39] VITALS: BMI 27.3
[2018-05-03 14:05] VITALS: BP 142/87; TEMP 98
--- NOTE | 2018-05-03 15:24 | C.PDOC ---
History Of Present Illness 72 year old female presents to the ED for evaluation of pain to the right 1st and 2nd toes for 2-3 days. The patient reports prior visit to the podiatry where two callous on her foot were shaved. She denies trauma, fever, chills, and any other associated symptoms. Time Seen by Provider: 05/03/18 14:15 Chief Complaint (Nursing): Lower Extremity Problem/Injury History Per: Patient History/Exam Limitations: no limitations Onset/Duration Of Symptoms: Days Current Symptoms Are (Timing): Still Present Past Medical History Reviewed: Historical Data, Nursing Documentation, Vital Signs Vital Signs: Last Vital Signs Temp 98 F 05/03/18 14:02 Pulse 74 05/03/18 14:02 Resp 20 05/03/18 14:02 BP 142/87 05/03/18 14:02 Pulse Ox 96 05/03/18 14:02 - Medical History PMH: Arthritis, CVA (affecting left side of body), Gastritis, HTN, Osteoporosis, Rheumatoid Arthritis Surgical History: Cholecystectomy - [facility] Procedures INJECT/INFUSE NEC (05/03/14) Family History: States: Unknown Family Hx - Social History Hx Tobacco Use: No Hx Alcohol Use: No Hx Substance Use: No - Immunization History Hx Tetanus Toxoid Vaccination: No Hx Influenza Vaccination: No Hx Pneumococcal Vaccination: Yes Review Of Systems Except As Marked, All Systems Reviewed And Found Negative. Constitutional: Negative for: Fever, Chills, Other (trauma. ) Musculoskeletal: Positive for: Other ( pain to the right 1st and 2nd toes.) Physical Exam - Physical Exam Appears: Well, Non-toxic, No Acute Distress Skin: Normal Color, Warm, Dry, No Rash, Other (no signs of cellulitus.) Head: Atraumatic, Normacephalic Eye(s): bilateral: Normal Inspection, PERRL, EOMI Oral Mucosa: Moist Back: No Vertebral Tenderness, No Paraspinal Tenderness Extremity: Normal ROM (of toes. ), No Tenderness (to the right toes.), Capillary Refill (< 2 sec), No Deformity, No Swelling (of the right toes. ) Pulses: Left Dorsalis Pedis: Normal, Right Dorsalis Pedis: Normal Neurological/Psych: Oriented x3, Normal Speech, Normal Cognition, Normal Motor, Normal Sensation Gait: Steady ED Course And Treatment O2 Sat by Pulse Oximetry: 96 (RA) Pulse Ox Interpretation: Normal - Other Rad RT Foot X-ray X-Ray: Viewed By Me, Read By Radiologist Interpretation: FINDINGS: BONES: No fracture. Plantar calcaneal spur. JOINTS: Hallux valgus. No evidence of arthritis. SOFT TISSUES: Normal. OTHER FINDINGS: None. IMPRESSION: Hallux valgus. Plantar calcaneal spur. Otherwise unremarkable. Medical Decision Making Medical Decision Making: Plan: -Motrin RT Foot x-ray Progress/Update: Patient stable for discharge home. Physical exam and Follow up with the medical doctor within 1-2 days. return if worsened.ray are WNL's. Patient instructed that this may be early arthritis vs. neuropathy. Advised to follow up with podiatry in 1-2 days. Disposition - Disposition Referrals: Jimbo Sierra MD [Medical Doctor] - Disposition: HOME/ ROUTINE Disposition Time: 15:21 Condition: STABLE Additional Instructions: Follow up with the medical doctor within 1-2 days. return if worsened. Prescriptions: Acetaminophen [Tylenol] 325 mg PO Q6 PRN #30 tab PRN Reason: Pain, Mild (1-3) Gabapentin [Neurontin] 300 mg PO DAILY #20 cap Instructions: Peripheral Neuropathy Forms: [employer] (Uzbek) Print Language: KHMER - Clinical Impression Clinical Impression: Neuropathy - PA / DIAGNOSTICS TECH / Resident Statement MD/DO has reviewed & agrees with the documentation as recorded. - Scribe Statement The provider has reviewed the documentation as recorded by the Scribe (Reena Mercedes) All medical record entries made by the Scribe were at my direction and personally dictated by me. I have reviewed the chart and agree that the record accurately reflects my personal performance of the history, physical exam, medical decision making, and the department course for this patient. I have also personally directed, reviewed, and agree with the discharge instructions and disposition.
[2018-05-03 15:33] VITALS: PULSE 70; RESP 18
--- NOTE | 2018-05-03 16:20 | RAD ---
Date of service: 05/03/2018 PROCEDURE: Right Foot Radiographs. HISTORY: foot pain COMPARISON: None. FINDINGS: BONES: No fracture. Plantar calcaneal spur. JOINTS: Hallux valgus. No evidence of arthritis. SOFT TISSUES: Normal. OTHER FINDINGS: None. IMPRESSION: Hallux valgus. Plantar calcaneal spur. Otherwise unremarkable.
[2018-05-03 17:18] VITALS: O2SAT 96
== END 2018-05-03 15:31 | disposition home or self-care (01) ==
LOC: C.ER 13:39
DX: G62.9 Polyneuropathy, unspecified (principal); I10 Essential (primary) hypertension; M06.9 Rheumatoid arthritis, unspecified; M81.0 Age-related osteoporosis without current pathological fracture

== ENCOUNTER 2018-05-20 11:07 | Emergency (ER) | payer MEDICARE, MEDICAID ==
[2018-05-20 11:07] VITALS: BMI 27.3
[2018-05-20 11:49] VITALS: TEMP 97.6; O2SAT 98
--- NOTE | 2018-05-20 13:40 | C.PDOC ---
History Of Present Illness 72 y/o female presents to the ED reporting that yesterday around 11AM she developed pain to the right posterior knee. Now pain is radiating down to the posterior ankle. Associated with mild swelling. Denies blunt trauma or fall. She also denies chest pain, SOB, fevers, or chills. No history of blood clots. Time Seen by Provider: 05/20/18 11:57 Chief Complaint (Nursing): Lower Extremity Problem/Injury History Per: Patient History/Exam Limitations: no limitations Onset/Duration Of Symptoms: Days (x 2) Current Symptoms Are (Timing): Still Present Past Medical History Reviewed: Historical Data, Nursing Documentation, Vital Signs Vital Signs: Last Vital Signs Temp 97.6 F 05/20/18 11:46 Pulse 73 05/20/18 11:46 Resp 20 05/20/18 11:46 BP 150/83 05/20/18 11:46 Pulse Ox 98 05/20/18 11:46 - Medical History PMH: Arthritis, CVA (affecting left side of body), Gastritis, HTN, Osteoporosis, Rheumatoid Arthritis Surgical History: Cholecystectomy - [facility] Procedures INJECT/INFUSE NEC (05/03/14) Family History: States: Unknown Family Hx - Social History Hx Tobacco Use: No Hx Alcohol Use: No Hx Substance Use: No - Immunization History Hx Tetanus Toxoid Vaccination: No Hx Influenza Vaccination: No Hx Pneumococcal Vaccination: Yes Review Of Systems Constitutional: Negative for: Fever, Chills, Weakness Eyes: Negative for: Redness, Other (icterus) ENT: Negative for: Mouth Swelling Cardiovascular: Negative for: Chest Pain Respiratory: Negative for: Cough, Shortness of Breath Gastrointestinal: Negative for: Nausea, Vomiting, Diarrhea Genitourinary: Negative for: Dysuria, Hematuria Musculoskeletal: Positive for: Leg Pain (to posterior right knee, radiating down to ankle). Negative for: Back Pain Skin: Negative for: Rash Neurological: Negative for: Weakness, Numbness, Dizziness Physical Exam - Physical Exam Appears: Well, Non-toxic, No Acute Distress Skin: Normal Color, Warm, No Rash Head: Atraumatic, Normacephalic Eye(s): bilateral: Normal Inspection (no scleral icterus), PERRL, EOMI Nose: Normal Oral Mucosa: Moist Neck: Normal ROM, Supple Chest: Symmetrical Cardiovascular: Rhythm Regular, No Murmur Respiratory: Normal Breath Sounds, No Rales, No Rhonchi, No Wheezing Gastrointestinal/Abdominal: Soft, No Tenderness, No Distention Back: Other (Ambulatory with steady upright gait) Extremity: Tenderness (to right posterior popliteal area), Calf Tenderness (on the right), No Deformity, Swelling (Mild swelling to the right lower extremity below the knee; no knee effusion), Other (Notable varicose veins to anterior right lower leg; no erythema, induration, or rashes to the area) Pulses: Left Dorsalis Pedis: Normal, Right Dorsalis Pedis: Normal Neurological/Psych: Oriented x3, Normal Cranial Nerves ED Course And Treatment O2 Sat by Pulse Oximetry: 98 (RA) Pulse Ox Interpretation: Normal - CT Scan/US Doppler US - RLE Other Rad Studies (CT/US): Read By Radiologist CT/US Interpretation: Negative for DVT Reevaluation Time: 15:10 Reassessment Condition: Improved Medical Decision Making Medical Decision Making: Impression: Right lower extremity pain and swelling Differential dx: DVT vs. ruptured bakers cyst Plan: - Doppler study of RLE ordered - 600 mg Motrin PO given for pain 13:48 Vascular study is preliminary read as negative, patient advised. Patient continues to complain of pain. Given 50 mg PO tramadol. 15:10 On reevaluation patient reports improvement in pain and feels comfortable going home. Requests rx for NSAIDs to go home with. Disposition Counseled Patient/Family Regarding: Studies Performed, Diagnosis, Need For Followup, Rx Given - Disposition Disposition: HOME/ ROUTINE Disposition Time: 15:18 Condition: IMPROVED Additional Instructions: JANET NORRIS, thank you for letting us take care of you today. Your provider was Oscarmaggie RENE and you were treated for RIGHT LEG PAIN. The emergency medical care you received today was directed at your acute symptoms. If you were prescribed any medication, please fill it and take as directed. It may take several days for your symptoms to resolve. Return to the Emergency Department if your symptoms worsen, do not improve, or if you have any other problems. Please contact your doctor or call one of the physicians/clinics you have been referred to that are listed on the Patient Visit Information form that is included in your discharge packet. Bring any paperwork you were given at discharge with you along with any medications you are taking to your follow up visit. Our treatment cannot replace ongoing medical care by a primary care provider outside of the emergency department. Thank you for allowing the [facility] team to be part of your care today. If you had an X-Ray or CT scan: A Radiologist will review the ED reading if any change in treatment is needed we will contact you. Prescriptions: Ibuprofen [Motrin Tab] 600 mg PO TID #30 tab Instructions: Muscle and Bone Pain (DC) Forms: [employer] (Luxembourgish), General Discharge Instructions Print Language: ESTONIAN - Clinical Impression Clinical Impression: Leg pain, right - PA / SERVICE DELIVERY MANAGEMENT CONSULTANT / Resident Statement MD/DO has reviewed & agrees with the documentation as recorded. - Scribe Statement The provider has reviewed the documentation as recorded by the Scribe Shea Seals All medical record entries made by the Scribe were at my direction and personally dictated by me. I have reviewed the chart and agree that the record accurately reflects my personal performance of the history, physical exam, medical decision making, and the department course for this patient. I have also personally directed, reviewed, and agree with the discharge instructions and disposition.
--- NOTE | 2018-05-20 14:10 | C.PDOC ---
Time Seen by Provider: 05/20/18 11:57 Chief Complaint (Nursing): Lower Extremity Problem/Injury Past Medical History Vital Signs: Last Vital Signs Temp 97.6 F 05/20/18 11:46 Pulse 73 05/20/18 11:46 Resp 20 05/20/18 11:46 BP 150/83 05/20/18 11:46 Pulse Ox 98 05/20/18 11:46 - Medical History PMH: Arthritis, CVA (affecting left side of body), Gastritis, HTN, Osteoporosis, Rheumatoid Arthritis Surgical History: Cholecystectomy - [facility] Procedures INJECT/INFUSE NEC (05/03/14) Family History: States: Unknown Family Hx - Social History Hx Tobacco Use: No Hx Alcohol Use: No Hx Substance Use: No - Immunization History Hx Tetanus Toxoid Vaccination: No Hx Influenza Vaccination: No Hx Pneumococcal Vaccination: Yes ED Course And Treatment O2 Sat by Pulse Oximetry: 98 Disposition - Disposition
[2018-05-20 15:11] VITALS: BP 144/82; PULSE 78; RESP 16
--- NOTE | 2018-05-22 13:25 | VASCLAB ---
Date of service: 05/20/2018 PROCEDURE: Right Lower Extremity Venous Duplex Exam. HISTORY: Leg swelling PRIORS: None. TECHNIQUE: Right common femoral, femoral, popliteal and posterior tibial, peroneal and great saphenous veins were evaluated. Flow was assessed with color Doppler, compressibility, assessment of phasic flow and augmentation response. Report prepared by ANU Sandoval, RVT FINDINGS: RIGHT: 1. Common Femoral Vein: 1.1. Compressibility - Fully compressible: Thrombus - None: Flow - Phasic: Augmentation -Normal: Reflux - None. 2. Femoral Vein: 2.1. Compressibility - Fully compressible: Thrombus - None: Flow - Phasic: Augmentation -Normal: Reflux - None. 3. Popliteal Vein: 3.1. Compressibility - Fully compressible: Thrombus - None: Flow - Phasic: Augmentation -Normal: Reflux - None. 4. Posterior Tibial Vein: 4.1. Compressibility - Fully compressible: Thrombus - None: Flow - Phasic: Augmentation -Normal: Reflux - None. 5. Peroneal Vein: 5.1. Compressibility - Fully compressible: Thrombus - None: Flow - Phasic: Augmentation -Normal: Reflux - None. 6. Great Saphenous Vein: 6.1. Compressibility - Fully compressible: Thrombus -None: Flow - Phasic: Augmentation - Normal: Reflux - None. OTHER FINDINGS: IMPRESSION: No evidence of deep or superficial vein thrombosis of the right lower extremity with excellent venous flow. Normal valve function noted of the right side. Normal venous flow noted in the left common femoral vein.
== END 2018-05-20 15:31 | disposition home or self-care (01) ==
LOC: C.ER 11:07
DX: M79.604 Pain in right leg (principal); I10 Essential (primary) hypertension; M06.9 Rheumatoid arthritis, unspecified; M81.0 Age-related osteoporosis without current pathological fracture; Z86.73 Personal history of transient ischemic attack (TIA), and cerebral infarction without residual deficits